=== PATIENT | female | born 1970 | race Caucasian/White ===

== ENCOUNTER 2018-03-24 18:42 | Emergency (ER) | payer SELFPAY ==
[~2018-03-24] VITALS: Ht 152.4 cm; Wt 61.2 kg
[2018-03-24 18:42] VITALS: BP 226/116
--- NOTE | 2018-03-24 18:52 | NUR ---
PATIENT PRESENTS TO ED WITH c/o 8/10 "pressure" intermittent non radiating left sided chest pain x 1630 today. Patient sts pain is worse when "moving body". Patient also reports of difficultly breathing and fatigue when cp occurs. RR are even and tachynpenic. Clear speech with full sentences. Skin is warm/dry/color apprioriate for ethnicity.PATIENT POSITIONED FOR COMFORT; HOB ELEVATED; BEDRAILS UP X2; BED DOWN. ER MD MADE AWARE OF PT STATUS.
--- NOTE | 2018-03-24 19:56 | NUR ---
Dr. Benson evaluating patient at bedside.
[2018-03-24] MEDS ORDERED: LORazepam 0.5 MG TAB PO ONE (20:25)
[2018-03-24] MEDS ORDERED: KETOROLAC 30 MG/ML VIAL IVP ONE (20:25)
--- NOTE | 2018-03-24 20:34 | NUR ---
X-Ray at bedside.
[2018-03-24 20:54] LABS: BASOPHILS % (AUTO) 0.6 % (0.0-2.0); EOSINOPHILS % (AUTO) 0.7 % (0.0-4.0); HEMATOCRIT 42.8 % (36-48); LYMPHOCYTES # (AUTO) 1.2 K/uL (2.5-16.5); LYMPHOCYTES % (AUTO) 21.8 % (20.5-51.1); MEAN CORPUSCULAR HEMOGLOBIN 31 pg (27-31); MEAN CORPUSCULAR HGB CONC 35 g/dL (33-37); MEAN CORPUSCULAR VOLUME 86.8 fL (80-94); MONOCYTES # (AUTO) 0.5 K/uL (0.8-1.0); NEUTROPHILS # (AUTO) 3.9 K/uL (1.8-7.7); NEUTROPHILS % (AUTO) 67.9 % (42.2-75.2); PLATELET COUNT (AUTO) 197 K/uL (140-450); RED BLOOD CELL COUNT(AUTO) 4.93 MIL/uL (4.20-5.40); RED CELL DISTRIBUTION WIDTH 12.6 % (11.6-13.7); WHITE BLOOD COUNT (AUTO) 5.7 K/uL (4.8-10.8)
[2018-03-24 21:11] LABS: ANION GAP 7.3 (8-16); CARBON DIOXIDE 25.9 mmol/L (21-32); CREATININE 0.7 mg/dL (0.6-1.3); POTASSIUM 4.2 mmol/L (3.5-5.1)
[2018-03-24 21:17] LABS: ALBUMIN 3.3 g/dL (3.4-5.0); PROTHROMBIN TIME 9.4 secs (10.8-13.4); TOTAL BILIRUBIN 0.3 mg/dL (0.0-1.0)
[2018-03-24 22:49] VITALS: BP 128/98
--- NOTE | 2018-03-24 22:50 | NUR ---
Patient discharged with v/s stable. Written and verbal after care instructions given and explained. Patient alert, oriented and verbalized understanding of instructions. Ambulatory with steady gait. All questions addressed prior to discharge. ID band removed. Patient advised to follow up with PMD. Rx of METFORMIN, ATIVAN, ASPRIN given. Patient educated on indication of medication including possible reaction and side effects. Opportunity to ask questions provided and answered.
== END 2018-03-24 22:50 | disposition home or self-care (01) ==
LOC: MED 18:42
DX: R07.89 Other chest pain (principal); F41.9 Anxiety disorder, unspecified; E11.65 Type 2 diabetes mellitus with hyperglycemia
CPT/HCPCS: 36415; 71045; 80053; 82948; 83880; 84484; 85025; 85610; 85730; 93005; 96374; 99285; J1885; Q0092

== ENCOUNTER 2020-08-13 05:35 | Emergency (ER) | payer SELFPAY ==
[~2020-08-13] VITALS: Ht 157.5 cm; Wt 86.2 kg
[2020-08-13 05:42] VITALS: BP 190/90
--- NOTE | 2020-08-13 05:42 | NUR ---
TO BED AMBULATORY
[2020-08-13] MEDS ORDERED: ASPIRIN 81 MG TAB.CHEW PO ONE (05:50)
--- NOTE | 2020-08-13 05:51 | NUR ---
Dr. Soria examining patient.
[2020-08-13] MEDS ORDERED: KETOROLAC 60 MG/2 ML VIAL IM ONE (06:00)
--- NOTE | 2020-08-13 06:05 | NUR ---
X-Ray at bedside.
--- NOTE | 2020-08-13 06:05 | NUR ---
Pt c/o left sided chest pain since yesterday. States she took Tylenol around midnight last night but it did not help. Denying other medical hx at this time. A/Ox4, steady gait. VSS. Noted with facial grimace.
[2020-08-13 06:07] LABS: BASOPHILS % (AUTO) 0.4 % (0.0-2.0); EOSINOPHILS # (AUTO) 0.1 K/uL (0-0.4); EOSINOPHILS % (AUTO) 1.6 % (0.0-4.0); HEMATOCRIT 42.9 % (36-48); HEMOGLOBIN 15.1 g/dL (12.0-16.0); LYMPHOCYTES % (AUTO) 30.4 % (20.5-51.1); MEAN CORPUSCULAR HEMOGLOBIN 30 pg (27-31); MEAN CORPUSCULAR HGB CONC 35 g/dL (33-37); MONOCYTES # (AUTO) 0.8 K/uL (0.8-1.0); MONOCYTES % (AUTO) 12.4 % (1.7-9.3); NEUTROPHILS # (AUTO) 3.6 K/uL (1.8-7.7); NEUTROPHILS % (AUTO) 55.2 % (42.2-75.2); PLATELET COUNT (AUTO) 203 K/uL (140-450); RED BLOOD CELL COUNT(AUTO) 4.99 MIL/uL (4.20-5.40); WHITE BLOOD COUNT (AUTO) 6.6 K/uL (4.8-10.8)
[2020-08-13] MEDS ORDERED: lisinopriL 20 MG TAB PO ONE (06:15)
--- NOTE | 2020-08-13 06:16 | NUR ---
MD notified of SBP of 213. Pt medicated with Lisinopril per MD order, will recheck bp after 30 min.
[2020-08-13] MEDS ORDERED: IBUP-2213 PO (06:35)
[2020-08-13 06:36] LABS: ALBUMIN 3.4 g/dL (3.4-5.0); ANION GAP 13.6 (8-16); CARBON DIOXIDE 23.9 mmol/L (21-32); CREATININE 0.6 mg/dL (0.6-1.3); POTASSIUM 3.5 mmol/L (3.5-5.1); TOTAL BILIRUBIN 0.3 mg/dL (0.0-1.0)
[2020-08-13 07:04] VITALS: BP 177/90
--- NOTE | 2020-08-13 07:05 | NUR ---
Patient discharged with v/s stable. Written and verbal after care instructions given and explained. Patient alert, oriented and verbalized understanding of instructions. Carried with steady gait. All questions addressed prior to discharge. ID band removed. Patient advised to follow up with PMD. Rx of Motrin given. Patient educated on indication of medication including possible reaction and side effects. Opportunity to ask questions provided and answered.
== END 2020-08-13 07:05 | disposition home or self-care (01) ==
LOC: MED 05:35
DX: M94.0 Chondrocostal junction syndrome [Tietze] (principal); R03.0 Elevated blood-pressure reading, without diagnosis of hypertension; E11.9 Type 2 diabetes mellitus without complications; Z88.0 Allergy status to penicillin; Z79.899 Other long term (current) drug therapy
CPT/HCPCS: 36415; 71045; 80053; 84484; 85025; 96372; 99285; J1885; 93005

== ENCOUNTER 2023-10-23 21:07 | Inpatient (IN) | payer OTHER ==
[~2023-10-23] VITALS: Ht 160 cm; Wt 63.5 kg
[~2023-10-23 21:07] MED LIST: IBUP-2213 PO
[2023-10-23 21:15] VITALS: BP 158/94; PULSE 63; RESP 18; TEMP 98.6; O2SAT 98
[2023-10-23 22:11] LABS: BASOPHILS % (AUTO) 0.4 % (0.0-2.0); EOSINOPHILS # (AUTO) 0.1 K/uL (0-0.4); EOSINOPHILS % (AUTO) 2.1 % (0.0-4.0); HEMATOCRIT 40.9 % (36-48); HEMOGLOBIN 14.3 g/dL (12.0-16.0); LYMPHOCYTES # (AUTO) 1.9 K/uL (2.5-16.5); LYMPHOCYTES % (AUTO) 28.1 % (20.5-51.1); MEAN CORPUSCULAR HEMOGLOBIN 31 pg (27-31); MEAN CORPUSCULAR HGB CONC 35 g/dL (33-37); MEAN CORPUSCULAR VOLUME 87.9 fL (80-94); MONOCYTES # (AUTO) 0.7 K/uL (0.8-1.0); MONOCYTES % (AUTO) 10.6 % (1.7-9.3); NEUTROPHILS % (AUTO) 58.8 % (42.2-75.2); PLATELET COUNT (AUTO) 201 K/uL (140-450); RED BLOOD CELL COUNT(AUTO) 4.65 MIL/uL (4.20-5.40); RED CELL DISTRIBUTION WIDTH 14.4 % (11.6-13.7); WHITE BLOOD COUNT (AUTO) 6.7 K/uL (4.8-10.8)
[2023-10-23 22:29] LABS: ALBUMIN 3.1 g/dL (3.4-5.0); ANION GAP 14.2 (8-16); CALCIUM 9.3 mg/dL (8.5-10.1); CARBON DIOXIDE 26.2 mmol/L (21-32); CREATININE 0.5 mg/dL (0.6-1.3); POTASSIUM 4.4 mmol/L (3.5-5.1); TOTAL BILIRUBIN 0.3 mg/dL (0.0-1.0); TOTAL PROTEIN, SERUM 7.3 g/dL (6.4-8.2)
[2023-10-23 22:40] LABS: APPEARANCE,URINE CLEAR (CLEAR); BILIRUBIN,URINE NEGATIVE (NEGATIVE); BLOOD, URINE TRACE-I (NEGATIVE); COLOR,URINE YELLOW (YELLOW); LEUKOCYTE ESTERASE ,URINE NEGATIVE (NEGATIVE); NITRITE, URINE POSITIVE (NEGATIVE); PROTEIN,URINE NEGATIVE (NEGATIVE); UGLUCOSE 3+ (NEGATIVE); UROBILINOGEN,URINE 0.2 EU/dL (0.2 - 1)
[2023-10-23 22:57] LABS: RBC,URINE 0-5 /HPF (0-5)
[2023-10-23 22:58] LABS: BACTERIA,URINE >30 (MANY) /HPF (None Seen); MUCUS,URINE 1+ /LPF (None Seen); SQUAMOUS EPITHELIAL CELL,UR 0-3 (FEW) /LPF (0-3 (FEW)); WBC,URINE 20-60 /HPF (0-5)
[2023-10-24] MEDS ORDERED: NACL 0.9% 1,000 ML IV SCH (00:10)
[2023-10-24] MEDS ORDERED: MORPHINE SULFATE 2 MG/ML SYR IVP PRN ×2 (00:10→00:15)
[2023-10-24] MEDS ORDERED: ONDANSETRON 4 MG/2 ML VIAL IVP PRN ×2 (00:10→00:15)
[2023-10-24] MEDS ORDERED: ACETAMINOPHEN 325 MG TAB PO PRN ×2 (00:10→00:15)
[2023-10-24] MEDS ORDERED: INSU100I7 SQ (00:18)
[2023-10-24] MEDS ORDERED: CLOP-68 PO (00:18)
[2023-10-24] MEDS ORDERED: METF-1243 PO (00:18)
[2023-10-24] MEDS ORDERED: METF-336 PO (00:18)
[2023-10-24] MEDS ORDERED: DAPA10TA PO (00:18)
[2023-10-24] MEDS ORDERED: ATOR40TA40 PO (00:18)
[2023-10-24] MEDS ORDERED: ASPI-1822 PO (00:18)
[2023-10-24] MEDS: NACL 0.9% 1,000 ML IV SCH (01:40)
[2023-10-24 09:00] VITALS: PULSE 76; RESP 17
[2023-10-24] MEDS: CIPROFLOXACIN 400 MG/200ML-D5W 200 ML IV SCH (13:09)
[2023-10-24] MEDS: LACTULOSE 20 GM/30 ML UDC PO SCH (13:10)
[2023-10-24] MEDS: SENNA 8.6 MG TAB PO SCH (13:10)
[2023-10-24 16:00] VITALS: BP 137/86; PULSE 61; RESP 18; TEMP 97.5; O2SAT 96
[2023-10-24 20:00] VITALS: BP 144/75; PULSE 64; RESP 18; TEMP 97; O2SAT 96
[2023-10-24] MEDS: MEDS-TO-BEDS MC SCH (21:00)
[2023-10-25 04:00] VITALS: BP 115/61; PULSE 44; RESP 16; TEMP 97.2; O2SAT 97
[2023-10-25 05:15] LABS: BASOPHILS % (AUTO) 0.4 % (0.0-2.0); EOSINOPHILS # (AUTO) 0.1 K/uL (0-0.4); HEMATOCRIT 37.6 % (36-48); LYMPHOCYTES # (AUTO) 1.7 K/uL (2.5-16.5); LYMPHOCYTES % (AUTO) 24.6 % (20.5-51.1); MEAN CORPUSCULAR HEMOGLOBIN 31 pg (27-31); MEAN CORPUSCULAR HGB CONC 35 g/dL (33-37); MEAN CORPUSCULAR VOLUME 89.1 fL (80-94); MONOCYTES # (AUTO) 0.8 K/uL (0.8-1.0); MONOCYTES % (AUTO) 12.5 % (1.7-9.3); NEUTROPHILS # (AUTO) 4.1 K/uL (1.8-7.7); NEUTROPHILS % (AUTO) 60.5 % (42.2-75.2); PLATELET COUNT (AUTO) 172 K/uL (140-450); RED BLOOD CELL COUNT(AUTO) 4.22 MIL/uL (4.20-5.40); RED CELL DISTRIBUTION WIDTH 14.1 % (11.6-13.7); WHITE BLOOD COUNT (AUTO) 6.7 K/uL (4.8-10.8)
[2023-10-25 05:55] LABS: ALBUMIN 2.7 g/dL (3.4-5.0); ANION GAP 12.4 (8-16); CALCIUM 8.5 mg/dL (8.5-10.1); CARBON DIOXIDE 24.3 mmol/L (21-32); CREATININE 0.4 mg/dL (0.6-1.3); MAGNESIUM 1.9 mg/dL (1.8-2.4); POTASSIUM 3.7 mmol/L (3.5-5.1); TOTAL BILIRUBIN 0.4 mg/dL (0.0-1.0); TOTAL PROTEIN, SERUM 6.3 g/dL (6.4-8.2)
[2023-10-25 08:00] VITALS: BP 142/72; PULSE 88; RESP 18; TEMP 96.7; O2SAT 97
[2023-10-25] MEDS ORDERED: CIPR500T4 PO (10:29)
[2023-10-25] MEDS ORDERED: LINE600T4 PO (13:53)
[2023-10-25] MEDS ORDERED: VANCOMYCIN PER PHARMACY MC PRN (14:15)
[2023-10-25 15:27] VITALS: BP 142/72; PULSE 88; RESP 18; TEMP 96.7
[2023-10-25] MEDS ORDERED: VANCOMYCIN 1,000 MG in DEXTROSE 5% 250 ML IV SCH (16:00)
== END 2023-10-25 20:45 | DRG 351 ==
LOC: EDBD → MED 21:07 → MERGE 10-24 00:12 → MTU 10-24 00:12 → MED 10-24 00:12 → MTU 10-24 06:22
PROVIDERS: ADMIT Hospitalist; ATTEND Hospitalist
DX: D21.5 Benign neoplasm of connective and other soft tissue of pelvis (principal); E44.0 Moderate protein-calorie malnutrition; E11.9 Type 2 diabetes mellitus without complications; I10 Essential (primary) hypertension; E78.5 Hyperlipidemia, unspecified; B95.7 Other staphylococcus as the cause of diseases classified elsewhere; N39.0 Urinary tract infection, site not specified; N83.8 Other noninflammatory disorders of ovary, fallopian tube and broad ligament; K59.00 Constipation, unspecified; Z86.73 Personal history of transient ischemic attack (TIA), and cerebral infarction without residual deficits; Z79.899 Other long term (current) drug therapy; Z68.24 Body mass index [BMI] 24.0-24.9, adult; Z88.0 Allergy status to penicillin
CPT/HCPCS: 36415; 76856; 80053; 81001; 83735; 84100; 85025; 86304; 86900; 86901; 87081; 87086; 87186; 99285; J0744; J3370; J7060; Q0092